=== PATIENT | female | born 1995 ===

== ENCOUNTER 2017-12-09 20:38 | Emergency (ER) | payer OTHER ==
[2017-12-09 20:51] VITALS: O2SAT 100
[2017-12-09] MEDS ORDERED: Dexamethasone 4 mg/1 ml IM STA (21:17)
[2017-12-09] MEDS ORDERED: Dexamethasone 4 mg/1 ml ONE (21:48)
--- NOTE | 2017-12-09 22:26 | C.PDOC ---
History Of Present Illness 22 yo female c/o sore throat and swelling for the last couple of hours. 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 No known allergerns, no difficulty swallowing or breathing. Has not taken any medication for it. PT notes when this happened last time she had to "get a steriod shot". H/o endoscope within the last year in [place], moved here recently. Time Seen by Provider: 12/09/17 20:45 Chief Complaint (Nursing): ENT Problem History Per: Patient, Family History/Exam Limitations: None Onset/Duration Of Symptoms: Hrs Current Symptoms Are (Timing): Still Present Past Medical History Vital Signs: Last Vital Signs Temp 97.4 F L 12/09/17 20:46 Pulse 80 12/09/17 20:46 Resp 20 12/09/17 20:46 BP 107/69 12/09/17 20:46 Pulse Ox 100 12/09/17 20:46 - Medical History PMH: Gastritis Family History: States: Unknown Family Hx - Social History Hx Alcohol Use: Yes Hx Substance Use: Yes - Immunization History Hx Tetanus Toxoid Vaccination: No Hx Influenza Vaccination: No Hx Pneumococcal Vaccination: No Review Of Systems Except As Marked, All Systems Reviewed And Found Negative. ENT: Positive for: Throat Pain, Throat Swelling Physical Exam - Physical Exam Appears: Well, No Acute Distress Skin: Normal Color, Warm, Dry Head: Atraumatic, Normacephalic Eye(s): bilateral: Normal Inspection, PERRL, EOMI Ear(s): Bilateral: Normal Nose: Normal Oral Mucosa: Moist Throat: Normal, No Erythema, No Exudate, No Drooling Neck: Normal, Normal ROM, Supple Lymphatic: Normal Exam Chest: Symmetrical Cardiovascular: Rhythm Regular Respiratory: Normal Breath Sounds Gastrointestinal/Abdominal: Normal Exam Back: Normal Inspection Extremity: Normal ROM Neurological/Psych: Oriented x3, Normal Speech ED Course And Treatment O2 Sat by Pulse Oximetry: 100 Progress Note: BEnadryl and Decadron ordered. Pt notes she can not take Benadryl secondary to corn in it. Decadron given. On reassessment, patient is resting comfortable and tolerating PO with no intraoral swelling or difficulty breathing. Patient reports improvement in rash and was instructed to follow up with physician/clinic in 1-2 days or return to ED if symptoms persist or worsen. CAse discussed and pt evaluated by Dr Cohn, agreed upon plan and treatment. Disposition - Disposition
[2017-12-09 22:43] VITALS: BP 111/76; PULSE 70; RESP 18; TEMP 98.2
== END 2017-12-09 22:43 | disposition home or self-care (01) ==
LOC: C.ER 20:38
DX: J02.9 Acute pharyngitis, unspecified (principal)
CPT/HCPCS: 87070; 87430; 96372; 99282; J1100